=== PATIENT | female | born 1965 | race Caucasian/White ===

== ENCOUNTER 2021-03-10 09:55 | Emergency (ER) | payer BC ==
[2021-03-10 10:55] VITALS: BP 138/77; PULSE 63
--- NOTE | 2021-03-10 11:36 | EDM.PDOC ---
ED HPI GENERAL MEDICAL PROBLEM - General Chief Complaint: Flank Pain Stated Complaint: BLADDER/FLANK PAIN Time Seen by Provider: 03/10/21 11:02 Source of Information: Reports: Patient, RN Notes Reviewed History Limitations: Reports: No Limitations - History of Present Illness INITIAL COMMENTS - FREE TEXT/NARRATIVE: Patient is a 56-year-old female who presents to the ER for the evaluation of a possible bladder infection. Patient notes she has had pain in her bladder for 2 days now however it seems to have worsened today. She is not having any fever, but has had some chills, no nausea/vomiting/diarrhea, or any other worsening sick-like symptoms. Patient notes that she has been drinking more water, and she states that she has to use the bathroom, she is having no burning, but does feel a pressure relief, states that she does have urgency and frequency as well. Patient has not tried any medications at home for this. States that she has had issues like this prior a few years ago, and it got to be a pretty bad bladder infection that required IV antibiotics. She has no primary care provider, patient's only had hernia repair. States she has had a good bowel movement this morning as well. Patient also notes a history of ovarian cysts, when she was still getting her menses. She is not complaining of any vaginal issues, or any sort of discharge. 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 ED EXAM, RENAL/ - Physical Exam Exam: See Below Exam Limited By: No Limitations General Appearance: Alert, WD/WN, No Apparent Distress Respiratory/Chest: No Respiratory Distress, Lungs Clear, Normal Breath Sounds, No Accessory Muscle Use, Chest Non-Tender Cardiovascular: Normal Peripheral Pulses, Regular Rate, Rhythm, No Edema GI/Abdominal: Normal Bowel Sounds, Soft, No Distention, No Mass, Tender (suprapubic tenderness) (Female) Exam: Deferred Extremities: Normal Inspection, Normal Capillary Refill Neurological: Alert, Oriented, Normal Cognition, No Motor/Sensory Deficits Psychiatric: Normal Affect, Normal Mood Skin Exam: Warm, Dry, Intact, Normal Color, No Rash Course - Vital Signs Last Recorded V/S: Last Vital Signs Temp 97.3 F 03/10/21 10:50 Pulse 63 03/10/21 10:50 Resp 16 03/10/21 10:50 BP 138/77 03/10/21 10:50 Pulse Ox 99 03/10/21 10:50 - Orders/Labs/Meds Labs: Laboratory Tests 03/10/21 03/10/21 03/10/21 Range/Units 10:35 10:50 10:50 WBC 6.49 (3.98-10.04) K/mm3 RBC 4.40 (3.98-5.22) M/mm3 Hgb 14.1 (11.2-15.7) gm/dl Hct 43.1 (34.1-44.9) % MCV 98.0 H (79.4-94.8) fl MCH 32.0 (25.6-32.2) pg MCHC 32.7 (32.2-35.5) g/dl RDW Std Deviation 48.9 H (36.4-46.3) fL Plt Count 245 (182-369) K/mm3 MPV 9.6 (9.4-12.3) fl Neut % (Auto) 56.5 (34.0-71.1) % Lymph % (Auto) 33.4 (19.3-51.7) % [place] % (Auto) 7.9 (4.7-12.5) % Eos % (Auto) 1.5 (0.7-5.8) Baso % (Auto) 0.5 (0.1-1.2) % Neut # (Auto) 3.67 (1.56-6.13) K/mm3 Lymph # (Auto) 2.17 (1.18-3.74) K/mm3 [place] # (Auto) 0.51 H (0.24-0.36) K/mm3 Eos # (Auto) 0.10 (0.04-0.36) K/mm3 Baso # (Auto) 0.03 (0.01-0.08) K/mm3 Sodium 143 (136-145) mEq/L Potassium 3.9 (3.5-5.1) mEq/L Chloride 107 (98-107) mEq/L Carbon Dioxide 25 (21-32) mEq/L Anion Gap 14.9 (5-15) BUN 17 (7-18) mg/dL Creatinine 0.8 (0.55-1.02) mg/dL Est Cr Clr Drug Dosing 83.04 mL/min Estimated GFR (MDRD) > 60 (>60) mL/min BUN/Creatinine Ratio 21.3 H (14-18) Glucose 76 (70-99) mg/dL Calcium 9.1 (8.5-10.1) mg/dL Total Bilirubin 0.3 (0.2-1.0) mg/dL AST 18 (15-37) U/L ALT 32 (14-59) U/L Alkaline Phosphatase 68 (46-116) U/L C-Reactive Protein <0.2 (<1.0) mg/dL Total Protein 7.6 (6.4-8.2) g/dl Albumin 4.2 (3.4-5.0) g/dl Globulin 3.4 gm/dL Albumin/Globulin Ratio 1.2 (1-2) Urine Color Yellow (Yellow) Urine Appearance Clear (Clear) Urine pH 6.0 (5.0-8.0) Ur Specific [place] > or = 1.030 (1.005-1.030) Urine Protein Negative (Negative) Urine Glucose (UA) Negative (Negative) Urine Ketones 1+ H (Negative) Urine Occult Blood Negative (Negative) Urine Nitrite Negative (Negative) Urine Bilirubin Negative (Negative) Urine Urobilinogen 0.2 (0.2-1.0) Ur Leukocyte Esterase Negative (Negative) - Re-Assessments/Exams Free Text/Narrative Re-Assessment/Exam: 03/10/21 11:34 Patient presents to the ER for the evaluation of her possible bladder infection, her urinalysis demonstrates ketones but no other sign of infection, but by clinical exam the patient does at least have a urethritis. We will go ahead and treat her with Omnicef and have her follow-up in few days if not much better. Departure - Departure Time of Disposition: 11:35 Disposition: Home, Self-Care 01 Condition: Good Clinical Impression: Urethritis - Discharge Information *PRESCRIPTION DRUG MONITORING PROGRAM REVIEWED*: No *COPY OF PRESCRIPTION DRUG MONITORING REPORT IN PATIENT LILIANA: No Prescriptions: Cefdinir [Omnicef] 300 mg PO BID 5 Days #10 cap Instructions: Urethritis, Adult Referrals: PCP,None [Primary Care Provider] - Additional Instructions: You have been evaluated in the ED for your urinary symptoms. Your clinical exam was consistent with urethritis. Your urine was sent for culture, and you will be notified if you should need a change in your antibiotic. This may take up to 48 hours to result. You may take AZO for urinary pain relief. This is available over the counter, and can be attained at any retail store like [employer] or any pharmacy. Please be aware that this medication will make your urine turn orange. You should only use this medication for a time period not longer than 72 hours. You have been given a prescription for Omnicef (cefdinir), 300 mg 1 tablet 2 times a day for 5 days. Please note that the antibiotics can take up to 48 hours to start working. This medication was electronically sent to the [email or web address] located near [facility]. Please increase your oral fluid intake and try to stay adequately hydrated. Recommend clinic follow-up in a few days, if your symptoms do not be seem to be getting much better, this would be by at least Monday afternoon. Please return to the ED if your symptoms change or worsen. Sepsis Event Note (ED) - Evaluation Sepsis Screening Result: No Definite Risk - Focused Exam Vital Signs: Vital Signs Temp Pulse Resp BP Pulse Ox 03/10/21 10:50 97.3 F 63 16 138/77 99
== END 2021-03-10 11:46 | disposition home or self-care (01) ==
LOC: JD.ED 09:55
DX: N34.2 Other urethritis (principal); I10 Essential (primary) hypertension
CPT/HCPCS: 36415; 80053; 81003; 85025; 86140; 99283; 99284